=== PATIENT | female | born 1960 | race Two or more races ===

== ENCOUNTER → 2020-11-15 | Day surgery (SDC) | payer BC ==
[~2020-11-15] VITALS: Ht 154.9 cm; Wt 61.7 kg
[2020-11-15] VITALS (9 sets, daily range): BP systolic 105–136; BP diastolic 59–78
[~2020-11-15] MED LIST: ATENOLOL25 MG ORAL; Atropine Sulfate 0.4mg/ml inj IVP PRN; DiphenhydrAMINE 50mg/ml Inj IVP PRN; FAMOTIDINE20 MG ORAL; Glycopyrrolate 0.2mg/ml 1ml Vial ONE; HYDROcodone/Acetamin 5/325 tab ORAL PRN; HYDROcodone/Acetamin 7.5/325 tab ORAL PRN; Hydromorphone 0.5mg/0.5ml inj IVP PRN; Ketorolac 30mg Inj IV PRN; LORazepam Inj 2mg/ml 1ml IV PRN; LOSARTAN POTASS50 MG ORAL; LR 1000ml 1,000 ML IVLG SCH; LR 1000ml ONE; Labetalol 5mg/ml 20ml vial IV PRN; Lidocaine 1% MPF 10mg/ml 5ml ONE; Meperidine 25mg/1ml Inj (FOR RIGORS ONLY) IV PRN; Metoclopramide 10mg/2ml Inj IVP PRN; Midazolam 2mg/2ml Inj IVP PRN; Midazolam 2mg/2ml Inj ONE; PANTOPRAZOLE SO40 MG ORAL; fentaNYL 100 mcg/2 mL IV PRN; oxyCODONE HCL/Acetaminophen 5/325mg ORAL PRN
--- NOTE | 2020-11-15 08:44 | Anethesia Preoperative Eval ---
Anesthesia Pre-op PMH/ROS General Date of Evaluation: Nov 15, 2020 Time of Evaluation: 10:04 Anesthesiologist: Ranjith ASA Score: ASA 3 Mallampati Score Class I : Soft palate, uvula, fauces, pillars visible Class II: Soft palate, uvula, fauces visible Class III: Soft palate, base of uvula visible Class IV: Only hard plate visible Mallampati Classification: Class II Surgeon: Rose Diagnosis: Abd Pain Surgical Procedure: EGD/Colonoscopy Anesthesia History: none Family History: no anesthesia problems Allergies: Coded Allergies: No Known Allergies (Unverified , 11/11/20) Medications: see eMAR Patient NPO?: Yes Past Medical History Cardiovascular: Reports: HTN Gastrointestinal/Genitourinary: Reports: GERD Neurologic/Psychiatric: Reports: depression/anxiety PSxH Narrative: BRANDI Anesthesia Pre-op Phys. Exam Physician Exam Last Vital Signs Date Time Temp Pulse Resp B/P (MAP) Pulse Ox O2 Delivery O2 Flow Rate FiO2 11/15/20 08:17 Room Air 11/15/20 08:17 98.0 81 18 136/78 99 Constitutional: NAD Neurologic: CN 2-12 intact Cardiovascular: RRR Respiratory: CTA Gastrointestinal: S/NT/ND Airway Exam Mallampati Score: Class II MO: full ROM: limited Teeth: missing Dentures: upper, lower Anesthesia Pre-op A/P Risk Assessment & Plan Assessment: ASA 3 Plan: TIVA Status Change Before Surgery: No Thor Kasper MD Nov 15, 2020 08:44
--- NOTE | 2020-11-15 08:53 | Immediate Post-Op Evaluation ---
Immediate Post-Op Evalulation Immediate Post-Op Evalulation Procedure: EGD/Colonoscopy Date of Evaluation: Nov 15, 2020 Time of Evaluation: 10:52 IV Fluids: 1000 LR Blood Products: 0 Estimated Blood Loss: 2 Urinary Output: 0 Blood Pressure Systolic: 106 Blood Pressure Diastolic: 62 Pulse Rate: 67 Respiratory Rate: 16 O2 Sat by Pulse Oximetry: 100 Temperature (Fahrenheit): 97.8 Pain Score (1-10): 1 Nausea: No Vomiting: No Complications 0 Patient Status: awake, reacts, patent, none Hydration Status: adequate Thor Kasper MD Nov 15, 2020 08:53
--- NOTE | 2020-11-15 08:54 | 48 Hour Post Anesthesia Eval ---
Post Anesthesia Evaluation Procedure: EGD/Colonoscopy Date of Evaluation: Nov 15, 2020 Time of Evaluation: 12:58 Blood Pressure Systolic: 143 0: 84 Pulse Rate: 89 Respiratory Rate: 18 Temperature (Fahrenheit): 97.8 O2 Sat by Pulse Oximetry: 100 Airway: patent Nausea: No Vomiting: No Pain Intensity: 1 Hydration Status: adequate Cardiopulmonary Status: Stable Mental Status/LOC: patient returned to baseline Follow-up Care/Observations: 0 Post-Anesthesia Complications: 0 Follow-up care needed: ready to discharge Thor Kasper MD Nov 15, 2020 08:54
--- NOTE | 2020-11-15 09:03 | Short Stay Surgery H&P ---
History of Present Illness History of Present Illness Chief Complaint GERDs/history of hemorrhoids and screening colon. MICHAEL Levi is a 60 year old female who was admitted on for GERDS/screening colonoscopy. Patient History Allergies: Coded Allergies: No Known Allergies (Unverified , 11/11/20) PAST MEDICAL HISTORY: (1) Vertigo (2) Arthritis (3) History of hysterectomy (4) Hypertension Medication History Scheduled Atenolol* (Tenormin*), 12.5 MG ORAL PRN, (Reported) Famotidine* (Pepcid 20mg tablet*), 20 MG ORAL DAILY, (Reported) Losartan Potassium* (Losartan Potassium*), 50 MG ORAL DAILY, (Reported) Pantoprazole* (Pantoprazole*), 40 MG ORAL DAILY, (Reported) Review of Systems Cardiovascular: Reports: hypertension Respiratory: Reports: no symptoms Skeletal: Reports: osteroarthritis Gastrointestinal: Reports: gastro esophageal reflux disease Genitourinary: Reports: no symptoms Neurologic: Reports: no symptoms, other Endocrine: Reports: no symptoms Hematologic: Reports: no symptoms Physical Exam Vital Signs Last Vital Signs Date Time Temp Pulse Resp B/P (MAP) Pulse Ox O2 Delivery O2 Flow Rate FiO2 11/15/20 08:17 Room Air 11/15/20 08:17 98.0 81 18 136/78 99 Skin: normal HENT: normal Heart: normal Lungs: normal Abdomen: abnormal Extremities: normal Genitourinary: normal Plan Plan of Care Upper and the lower GI endoscopies. Preop Interventions None. Summary of Findings See the reports. Attestation Are the patient's medical conditions optimized for surgery? Attestation Response: yes Jenny Rose MD Nov 15, 2020 09:03
--- NOTE | 2020-11-15 09:04 | Pre-Procedure Note/Attestation ---
Pre-Procedure Note/Attestation Complete Prior to Procedure Procedure Narrative: Examination of the upper and the lower GI tract via endoscopy. Indications for Procedure Pre-Operative Diagnosis: R/O Gastritis/colon polyps. Attestation I attest that I discussed the nature of the procedure; its benefits; risks and complications; and alternatives (and the risks and benefits of such alternatives), prior to the procedure, with the patient (or the patient's legal chemical sales representative). I attest that, if there was a reasonable possibility of needing a blood transfusion, the patient (or the patient's legal chemical sales representative) was given the [facility] standardized written summary, pursuant to the Jurgen Humberto Blood Safety Act ([place] Health and Safety Code # 1645, as amended). I attest that I re-evaluated the patient just prior to the surgery and that there has been no change in the patient's H&P, except as documented below: Jenny Rose MD Nov 15, 2020 09:04
--- NOTE | 2020-11-15 09:05 | Discharge Instructions ---
Discharge Instructions Discharge Instructions Follow up with: Make appointment to see doctor in 2 weeks in office. For Congestive Heart Failure Reminder Report to your physician any weight gain of 5 pounds or more in one week. Jenny Rose MD Nov 15, 2020 09:05
--- NOTE | 2020-11-15 10:38 | Endoscopy Procedure Note ---
Endoscopy Procedure Note General Indication for Procedure: GERDs, screening colonoscopy Procedures Performed: EGD - Significant small gastric polyps consistent with fundic type polyps, most of the removed by cold snare; otherwise normal UGI endoscopy. Biopsy was done per random from gastric body., colonoscopy - Comp letely normal total colonoscopy. Specimen: yes Pt Tolerated Procedure Well: Yes Estimated Blood Loss: none Anesthesia Anesthesiologist: Dr. Mascorro Anesthesia: moderate sedation Medications Medication Given: see anesthesia record Inserted Devices Implant(s) used?: No Quality Quality of Bowel Preparation: Excellent Did scope reach the cecum?: Yes Was there any complications?: No GI Core Measures 50 yrs or older w/o bx or poly: Yes 10yrs. F/U recommended: Yes Med reason:<3 yrs.: System Reason:<3 yrs.: Last colonoscopy >= to 3yrs: Yes eJnny Rose MD Nov 15, 2020 10:38
--- NOTE | 2020-11-15 11:14 | Procedure Note ---
DATE OF PROCEDURE: 11/15/2020 SURGEON: Jenny Rose MD. PROCEDURE: Esophagogastroduodenoscopy with multiple polypectomy. PREOPERATIVE DIAGNOSIS: History of chronic gastroesophageal acid reflux. POSTOPERATIVE DIAGNOSIS: Significant numbers of small gastric polypoid lesion consistent with fundic type polyps, most of them removed with cold snare and gastric biopsy was also done. No evidence of ulcers or major tumors, bleeding site etc. found. MEDICATION USED: Per Dr. Kasper anesthesiologist. INSTRUMENT: GIF Olympus upper GI video endoscope. DESCRIPTION OF PROCEDURE: The patient after arriving endoscopy unit, was told about risks and benefits of the procedure which she accepted and signed informed consent. At this time, she was put in the left lateral decubitus position. After adequate IV sedation, the scope was gently passed through the cricopharyngeal area, was lodged into the upper esophagus and was gradually advanced towards gastroesophageal junction. The entire length of esophagus was normal. GE junction also was normal without any evidence of Thao's or hiatal hernia. At this time, the scope was advanced into the stomach and gastric cavity was distended with insufflation of air. Immediately, there was seen significant numbers of the small polypoid lesion, most of it was size of 1 to 2 millimeters consistent with fundic type gastric polyps and the patient also has been taking PPI such as Protonix for a long period of time. These benign polypoid lesions there were more than 50 to 60 in numbers. In significant amount of time, most of these lesions were removed with cold snare forceps and some of them were sent to the pathology lab for further evaluation. At this time, the scope was gradually advanced towards the pylorus. First and second portion of duodenum were found to be completely normal. At this time after obtaining a random biopsy from gastric body, the procedure was terminated. The patient tolerated the procedure well and left the endoscopy room in a good condition. Jenny Rose M.D. DR: Vic JOB#: [id number] CC:
--- NOTE | 2020-11-15 11:29 | Operative Note - Dictated ---
DATE OF OPERATION: 11/15/2020 SURGEON: Jenny Rose MD. PROCEDURE: Total colonoscopy. PREOPERATIVE DIAGNOSIS: Screening colonoscopy. POSTOPERATIVE DIAGNOSIS: Completely normal total colonoscopy. MEDICATION USED: Per Dr. Kasper anesthesiologist. INSTRUMENT: GIF Olympus video colonoscope. DESCRIPTION OF PROCEDURE: The patient after arriving endoscopy unit, was told about risks and benefits of the procedure, which she accepted and signed informed consent. At this time, she was put on the left lateral decubitus position. After adequate IV sedation, the scope was gently passed through the anal area and careful examination of this section revealed no evidence of major pathology. The rectum was also free of abnormality and the scope was gradually advanced towards a very significant redundant left colon and finally the scope reached to the splenic flexure, transverse colon, right colon all the way to the base of the cecum. All these areas were completely within normal limits and no polyps or tumors or inflammatory process, ulceration, bleeding site, etc., was found. The colon cleanup was adequate and good. At this time, upon reaching to the base of the cecum, within 6 minutes the scope was gradually pulled out and no other pathology was found. The patient tolerated the procedure well and left the endoscopy room in a good condition. Jenny Rose M.D. DR: MARGARETTE JOB#: [id number] CC:
== END | disposition home or self-care (01) ==
LOC: GAS 07:59
DX: Z12.11 Encounter for screening for malignant neoplasm of colon (principal); K21.9 Gastro-esophageal reflux disease without esophagitis; K31.7 Polyp of stomach and duodenum; M19.90 Unspecified osteoarthritis, unspecified site; Z90.710 Acquired absence of both cervix and uterus; I10 Essential (primary) hypertension; Z79.899 Other long term (current) drug therapy
CPT/HCPCS: 43239; 43251; 45378; 94003; J2250; J2704; J7120; U0004; 94150